=== PATIENT | female | born 1965 | race Caucasian/White ===

== ENCOUNTER 2017-09-01 17:49 | Emergency (ER) | payer BC ==
--- NOTE | 2017-09-01 19:07 | EDM.PDOC ---
ED HPI GENERAL MEDICAL PROBLEM - General Chief Complaint: ENT Problem Stated Complaint: FEVER/BODY ACHES/SORE THROAT Time Seen by Provider: 09/01/17 18:06 Source of Information: Reports: Patient History Limitations: Reports: No Limitations - History of Present Illness INITIAL COMMENTS - FREE TEXT/NARRATIVE: This lady comes in complaining of a sore throat also some problems with a 2 and a little bit of aching in her flanks. She has had a sore throat for about a week but this morning she started having body aches and a little bit of fever. She said everybody at home is sick too. The tooth previously that had a It Fell off and Now Is Due To Be Extracted Soon. - Related Data Allergies Allergy/AdvReac Type Severity Reaction Status Date / Time No Known Allergies Allergy Verified 09/01/17 17:58 Home Meds: Home Meds Amphetamine/Dextroamphetamine [Adderall XR] 09/01/17 [History] Hydrochlorothiazide [Hydrochlorothiazide] 09/01/17 [History] Past Medical History - Past Surgical History Female Surgical History: Reports: Section, Hysterectomy Social & Family History - Tobacco Use Smoking Status *Q: Never Smoker ED ROS ENT - Review of Systems Review Of Systems: ROS reveals no pertinent complaints other than HPI. ED EXAM, ENT - Physical Exam Exam: See Below Exam Limited By: No Limitations General Appearance: Alert, WD/WN Mouth/Throat: Other (One of the lower posterior molars is fractured off. I didn' t see her tonsils well but the nurse said they were a little bit swollen and had some exudate on them.) Neck: Normal Inspection, Full Range of Motion Respiratory/Chest: Lungs Clear Cardiovascular: Regular Rate, Rhythm Course - Vital Signs Last Recorded V/S: Last Vital Signs Temp 37.3 C 09/01/17 18:12 Pulse 99 09/01/17 18:12 Resp 14 09/01/17 18:12 BP 145/70 H 09/01/17 18:12 Pulse Ox 96 09/01/17 18:12 - Orders/Labs/Meds Labs: Laboratory Tests 09/01/17 Range/Units 18:16 Urine Color Yellow Urine Appearance Clear Urine pH 7.0 (4.5-8.0) Ur Specific [place] 1.015 (1.008-1.030) Urine Protein Negative (NEGATIVE) mg/dL Urine Glucose (UA) Normal (NEGATIVE) mg/dL Urine Ketones 50 H (NEGATIVE) mg/dL Urine Occult Blood Moderate (NEGATIVE) Urine Nitrite Negative (NEGATIVE) Urine Bilirubin Negative (NEGATIVE) Urine Urobilinogen Normal (NORMAL) mg/dL Ur Leukocyte Esterase Negative (NEGATIVE) Urine RBC 10-20 H (0-5) Urine WBC 0-5 (0-5) Ur Epithelial Cells Moderate Amorphous Sediment Not seen Urine Bacteria Few Urine Mucus Moderate - Re-Assessments/Exams Free Text/Narrative Re-Assessment/Exam: 09/01/17 19:05 Strep test is positive. Her tooth is fractured off at the wood looks like it's very chronic there is no abscess associated with it. She didn't get a flu shot this year but I don't have much suspicion of influenza. There was a little bit of blood in the urine. This patient is post hysterectomy. I told her that she will need to have a repeat urinalysis and one or 2 weeks. She's aware of the importance of following up the hematuria. I don' t have any suspicion of a stone. 09/01/17 19:06 Departure - Departure Time of Disposition: 19:06 Disposition: Home, Self-Care 01 Condition: Fair Clinical Impression: Strep pharyngitis, Microhematuria - Discharge Information Referrals: Payton Contreras PA [Primary Care Provider] - Additional Instructions: Take the penicillin VK 500 mg 4 times per day for 10 days. Strep is really sensitive to this medication. Use Tylenol and/or ibuprofen for fever and body aches. See your doctor in 1 or 2 weeks and have the urine rechecked. Persistent blood in the urine could indicate more serious problem with the kidneys.
== END 2017-09-01 19:28 | disposition home or self-care (01) ==
LOC: JP.ED 17:49
DX: J02.0 Streptococcal pharyngitis (principal); R31.29 Other microscopic hematuria; Z90.710 Acquired absence of both cervix and uterus
CPT/HCPCS: 81001; 87430; 99284

== ENCOUNTER 2017-09-11 01:50 | Emergency (ER) | payer BC ==
[2017-09-11] MEDS ORDERED: Lidocaine/EPINEPHrine/Tetracaine Soln 5 ML Each TOP ONE (02:28)
[2017-09-11] MEDS ORDERED: Ondansetron 4 MG Tab.DIS PO ONE (02:40)
--- NOTE | 2017-09-11 02:40 | EDM.PDOC ---
ED HPI GENERAL MEDICAL PROBLEM - General Chief Complaint: General Stated Complaint: TOOTHACHE/BLEEDING Time Seen by Provider: 09/11/17 02:12 Source of Information: Reports: Patient, RN Notes Reviewed History Limitations: Reports: No Limitations - History of Present Illness INITIAL COMMENTS - FREE TEXT/NARRATIVE: 51-year-old female presents emergency department today with complaint of bleeding gums, she had a dental extraction today has been unable to control the bleeding has tried teabags and multiple gauze placements with pressure - Related Data Allergies Allergy/AdvReac Type Severity Reaction Status Date / Time No Known Allergies Allergy Verified 09/11/17 02:10 Home Meds: Home Meds Amphetamine/Dextroamphetamine [Adderall XR] 30 mg PO DAILY 09/01/17 [History] Hydrochlorothiazide [Hydrochlorothiazide] 12.5 mg PO DAILY 09/01/17 [History] Penicillin V Potassium [Veetids] 500 mg PO QID 09/11/17 [History] Past Medical History HEENT History: Reports: Other (See Below) Other HEENT History: tooth extraction - Infectious Disease History Infectious Disease History: Reports: Chicken Pox - Past Surgical History Female Surgical History: Reports: Section, Hysterectomy Social & Family History - Tobacco Use Smoking Status *Q: Unknown Ever Smoked - Caffeine Use Caffeine Use: Reports: Coffee - Recreational Drug Use Recreational Drug Use: No ED ROS GENERAL - Review of Systems Review Of Systems: See Below Constitutional: Reports: No Symptoms HEENT: Reports: Other (Bleeding gums) GI/Abdominal: Reports: Nausea ED EXAM, GENERAL - Physical Exam Exam: See Below Free Text/Narrative:: Mouth mucosa is moist and pain she does active bleeding and large clots tooth # 17, after clot was sucked out a Surgicel gauze pad soaked with left was placed over the area with teabag to hold it in place Exam Limited By: No Limitations General Appearance: Alert, Mild Distress Respiratory/Chest: No Respiratory Distress Course - Vital Signs Last Recorded V/S: Last Vital Signs Temp 97.4 F 09/11/17 02:07 Pulse 81 09/11/17 02:07 Resp 16 09/11/17 02:07 BP 143/73 H 09/11/17 02:07 Pulse Ox 94 L 09/11/17 02:07 - Orders/Labs/Meds Labs: Laboratory Tests 03/13/18 Range/Units 02:44 WBC 11.2 H (4.5-11.0) K/uL RBC 3.81 (3.30-5.50) M/uL Hgb 11.4 L (12.0-15.0) g/dL Hct 33.4 L (36.0-48.0) % MCV 88 (80-98) fL MCH 30 (27-31) pg MCHC 34 (32-36) % Plt Count 358 (150-400) K/uL Neut % (Auto) 70 H (36-66) % Lymph % (Auto) 21 L (24-44) % [place] % (Auto) 8 H (2-6) % Eos % (Auto) 1 L (2-4) % Baso % (Auto) 0 (0-1) % Meds: Medications Discontinued Medications Generic Name Dose Route Start Last Admin Trade Name Freq PRN Reason Stop Dose Admin Lidocaine/Tetracaine 5 ml 09/11/17 02:28 09/11/17 02:32 Let Soln TOP 09/11/17 02:29 5 ml ONETIME ONE Administration Ondansetron HCl 4 mg 09/11/17 02:40 09/11/17 02:43 Zofran Odt PO 09/11/17 02:41 4 mg ONETIME ONE Administration Departure - Departure Time of Disposition: 03:40 Disposition: Home, Self-Care 01 Condition: Good Clinical Impression: Gums, bleeding - Discharge Information Referrals: Payton Contreras PA [Primary Care Provider] - Forms: ED Department Discharge Additional Instructions: Continue to use the teabags and the Surgicel provided, follow-up with your dentistry in the morning - Assessment/Plan Plan: Assessment Acuity = acute Site and laterality = bleeding dental extraction site Etiology = recent dental procedure Manifestations = none Location of injury = Home Lab values = hemoglobin 11.4 consistent normochromic anemia Plan We will get the bleeding under control combination of left soaked onto a Surgicel gauze pad with a tea bag used to hold it in place however contact her dentist in the morning This note was dictated using [employer] voice recognition software please call with any questions on syntax or alexa.
== END 2017-09-11 03:30 | disposition home or self-care (01) ==
LOC: JP.ED 01:50
DX: K06.9 Disorder of gingiva and edentulous alveolar ridge, unspecified (principal); Z79.899 Other long term (current) drug therapy
CPT/HCPCS: 36415; 85025; 99283; A9270-GY

== ENCOUNTER 2017-12-07 06:58 | Day surgery (SDC) | payer BC ==
[2017-12-07] MEDS ORDERED: Sodium Chloride 0.9% 1,000 ML IV SCH (07:30)
[2017-12-07] MEDS ORDERED: fentaNYL 100 MCG/2 ML SDV ONE (07:40)
[2017-12-07] MEDS ORDERED: Propofol 200 MG/20 ML SDV ONE ×2 (07:41→09:22)
[2017-12-07] MEDS ORDERED: Midazolam 1 MG/ML 2 ML SDV ONE (07:41)
--- NOTE | 2017-12-07 14:15 | OR ---
DATE OF PROCEDURE: 12/07/2017 PROCEDURE: Colonoscopy. FINDINGS: 1. Diverticulosis, moderate to severe, throughout the entire colon. 2. Marginal colon prep. 3. Sigmoid colon polyp, completely removed using cold biopsy forceps. COMPLICATIONS: None. ENTRY DRIVER OPERATOR: None. ANESTHESIA: MAC. PREOPERATIVE DIAGNOSIS: Screening colonoscopy. POSTOPERATIVE DIAGNOSIS: Screening colonoscopy. RISKS: Risks, benefits, alternatives, and limitations including, but not limited to infection, bleeding, and perforation were explained to the patient, who wished to proceed. PROCEDURE IN DETAIL: The patient was placed in left lateral decubitus position. Digital rectal exam was performed without abnormality. The scope was introduced and advanced atraumatically to the ileocecal valve. The scope was brought back to the ascending, transverse, descending colon, and retroflexed. Prep was moderately acceptable. There was a large amount of solid and liquid stool remaining. There was a sigmoid colon polyp, approximately 5 mm, completely removed using cold biopsy forceps. No abnormalities and retroflexed. The patient tolerated the procedure well. Rony Krause MD /[id number]
== END 2017-12-07 11:00 | disposition home or self-care (01) ==
LOC: JP.SDS 06:58
PROVIDERS: ATTEND Surgery
DX: Z12.11 Encounter for screening for malignant neoplasm of colon (principal); K63.5 Polyp of colon; K57.30 Diverticulosis of large intestine without perforation or abscess without bleeding; K27.9 Peptic ulcer, site unspecified, unspecified as acute or chronic, without hemorrhage or perforation; I10 Essential (primary) hypertension; E66.9 Obesity, unspecified; F98.8 Other specified behavioral and emotional disorders with onset usually occurring in childhood and adolescence; Z86.010 Personal history of colon polyps
CPT/HCPCS: 45380; J2250; J2704; J3010; J7030; 88305

== ENCOUNTER 2020-10-07 06:40 | Day surgery (SDC) | payer BC ==
[2020-10-07] MEDS ORDERED: Dextrose 5%-Lactated Ringers 1,000 ML IV SCH (07:00)
[2020-10-07] MEDS ORDERED: Propofol 200 MG/20 ML SDV ONE (07:09)
[2020-10-07] MEDS ORDERED: Midazolam 1 MG/ML 2 ML SDV ONE (07:09)
[2020-10-07] MEDS ORDERED: fentaNYL 100 MCG/2 ML SDV ONE (07:09)
--- NOTE | 2020-10-11 17:57 | OR ---
DATE OF PROCEDURE: 10/07/2020 SURGEON: Deni Lopez MD PREOPERATIVE DIAGNOSIS: History of colon polyps. POSTOPERATIVE DIAGNOSES: 1. No recurrent colon polyps. 2. Left colonic diverticulosis. OPERATIVE PROCEDURE: Flexible colonoscopy. ANESTHESIA: IV sedation. INDICATION FOR PROCEDURE: This is a 54-year-old female with history of colon polyps presenting for a followup colonoscopy. Plan is to proceed with colonoscopy with biopsies and/or polypectomy as indicated. Potential risks including bleeding and perforation were discussed, and the patient wishes to proceed. DETAILS OF PROCEDURE: The patient was taken to the operating room and placed in a left lateral decubitus position. IV sedation was administered, after which the initial digital rectal exam was performed. It was unremarkable. The scope was then passed into the rectum with retroflexion revealing uncomplicated hemorrhoidal columns. Scope was eventually passed to the level of the cecum. The prep was quite good with there only being a small amount of liquid stool present. No recurrent polyp formation or other signs of neoplasia was seen. She did have some uncomplicated left colonic diverticulosis. No areas of colitis were seen. 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 The scope was then withdrawn. The above findings reconfirmed and the procedure then concluded. Recommendation would be to repeat the colonoscopy in 5 years given the personal history of the colon polyps. Deni Lopez MD /[id number]
== END 2020-10-07 09:59 | disposition home or self-care (01) ==
LOC: JP.SDS 06:40
PROVIDERS: ATTEND Surgery
DX: Z12.11 Encounter for screening for malignant neoplasm of colon (principal); K57.30 Diverticulosis of large intestine without perforation or abscess without bleeding; D17.5 Benign lipomatous neoplasm of intra-abdominal organs; K64.9 Unspecified hemorrhoids; Z86.010 Personal history of colon polyps
CPT/HCPCS: 45378; J2250; J2704; J3010; J7121

== ENCOUNTER 2021-11-08 05:30 | Day surgery (SDC) | payer BC ==
[2021-11-08] MEDS ORDERED: Acetaminophen 500 MG Tab PO ONE (06:30)
[2021-11-08] MEDS ORDERED: Lidocaine 1% with EPINEPHrine 1:100,000 50 ML MDV ONE (06:40)
[2021-11-08] MEDS ORDERED: Bupivacaine 0.5% 50 ML MDV ONE (06:40)
[2021-11-08] MEDS ORDERED: fentaNYL 250 MCG/5 ML SDV ONE (06:58)
[2021-11-08] MEDS ORDERED: Propofol 200 MG/20 ML SDV ONE (06:59)
[2021-11-08] MEDS ORDERED: Glycopyrrolate 0.2 MG/ML 5 ML MDV ONE (06:59)
[2021-11-08] MEDS ORDERED: Ondansetron 4 MG/2 ML SDV ONE (06:59)
[2021-11-08] MEDS ORDERED: Dexamethasone 4 MG/ML SDV ONE (06:59)
[2021-11-08] MEDS ORDERED: Rocuronium 50 MG/5 ML Vial ONE (06:59)
[2021-11-08] MEDS ORDERED: Neostigmine Methylsulfate 1 MG/ML 5 ML Syringe ONE (06:59)
[2021-11-08] MEDS ORDERED: Dextrose 5%-Lactated Ringers 1,000 ML IV SCH (07:00)
[2021-11-08] MEDS ORDERED: cefOXitin 2 GM in Sodium Chloride 0.9% 50 ML IV ONE (07:15)
[2021-11-08] MEDS ORDERED: Labetalol 20 MG/4 ML Syringe ONE (07:39)
[2021-11-08] MEDS ORDERED: Ketamine 500 MG/5 ML MDV IV SCH (07:45)
[2021-11-08] MEDS ORDERED: Ketamine 18 MG in Sodium Chloride 0.9% 19.82 ML IV SCH (07:45)
[2021-11-08] MEDS ORDERED: fentaNYL 100 MCG/2 ML SDV ONE (07:49)
[2021-11-08] MEDS ORDERED: diphenhydrAMINE 50 MG/ML SDV IVPUSH ONE (08:43)
[2021-11-08] MEDS ORDERED: Ketorolac 30 MG/ML SDV IM ONE (09:00)
[2021-11-08] MEDS ORDERED: HYDROmorphone 2 MG Tab PO PRN (11:30)
[2021-11-08] MEDS ORDERED: Ondansetron 4 MG/2 ML SDV IVPUSH ONE (11:40)
== END 2021-11-08 12:53 | disposition home or self-care (01) ==
LOC: JP.SDS 05:30
PROVIDERS: ATTEND Surgery
DX: K80.10 Calculus of gallbladder with chronic cholecystitis without obstruction (principal); K76.0 Fatty (change of) liver, not elsewhere classified; K74.00 Hepatic fibrosis, unspecified; R16.0 Hepatomegaly, not elsewhere classified; I10 Essential (primary) hypertension; Z98.890 Other specified postprocedural states; Z79.899 Other long term (current) drug therapy; Z87.891 Personal history of nicotine dependence; Z88.8 Allergy status to other drugs, medicaments and biological substances
CPT/HCPCS: 88304; 88307; 88313; A9270-GY; J0171; J0694; J1100; J1885; J2405; J2704; J2710; J2795; J3010; J3490; J7121

== ENCOUNTER 2024-03-24 17:32 | Emergency (ER) | payer BC, OTHER ==
[2024-03-24 17:55] LABS: BASOPHILS ABSOLUTE AUTO 0.03 K/uL (0.00-0.10); BASOPHILS PERCENT AUTO 0.5 % (0.1-1.3); EOSINOPHILS PERCENT AUTO 0.3 % (0.0-5.4); HEMATOCRIT 38.6 % (34.3-46.0); HEMOGLOBIN 13.6 g/dL (11.2-15.5); IMMATURE GRAN PERCENT AUTO 0.3 % (0.0-0.7); LYMPHOCYTES ABSOLUTE AUTO 1.62 K/uL (0.8-3.3); LYMPHOCYTES PERCENT AUTO 24.5 % (11.4-47.7); MEAN CORPUSCULAR HEMOGLOBIN 29.9 pg (31.6-35.5); MEAN CORPUSCULAR HGB CONC 35.2 g/dL (31.6-35.5); MEAN CORPUSCULAR VOLUME 84.8 fL (81.4-99.0); MONOCYTES ABSOLUTE AUTO 0.72 K/uL (0.20-0.90); MONOCYTES PERCENT AUTO 10.9 % (3.3-12.6); NEUTROPHILS ABSOLUTE AUTO 4.19 K/uL (1.0-7.6); NEUTROPHILS PERCENT AUTO 63.5 % (40.0-78.1); PLATELET COUNT,PLT 173 K/uL (130-375); RED BLOOD CELL COUNT 4.55 M/uL (3.77-5.24); WHITE BLOOD CELL COUNT,WBC 6.6 K/uL (3.2-11.0)
[2024-03-24 17:57] LABS: EOSINOPHILS ABSOLUTE AUTO 0.02 K/uL (0.00-0.40); IMMATURE GRAN ABSOLUTE AUTO 0.02 K/uL (0.00-0.23)
[2024-03-24] MEDS: Aspirin 81 MG Tab.Chew PO ONE (17:57)
[2024-03-24 18:11] LABS: INR 1.1; PROTHROMBIN TIME 11.6 sec (9.2-10.6)
[2024-03-24 18:18] LABS: A/G RATIO 1.1 (1.2-2.2); ALANINE AMINOTRANSFERASE,ALT 39 U/L (12-78); ALKALINE PHOSPHATASE 117 U/L (46-116); ASPARTATE AMNIOTRANSFERASE,AST 43 U/L (15-37); BILIRUBIN TOTAL 0.5 mg/dL (0.2-1.0); BLOOD UREA NITROGEN,BUN 8 mg/dL (7-18); CALCIUM 9.3 mg/dL (8.5-10.1); CARBON DIOXIDE,CO2 29 mmol/L (21-32); CHLORIDE,CL 103 mmol/L (100-108); CREATININE 0.8 mg/dL (0.6-1.0); ESTIMATED GFR 86 mL/min (>60); GLUCOSE RANDOM 94 mg/dL (74-106); POTASSIUM,K 3.5 mmol/L (3.6-5.2); PROTEIN TOTAL,TP 7.7 g/dL (6.4-8.2); SODIUM,NA 141 mmol/L (140-148)
[2024-03-24 18:20] LABS: ANION GAP 12.5 mmol/L (5.0-14.0)
[2024-03-24] MEDS: Alum Hydrox/Mag Hydrox/Simeth 15 ML, Lidocaine 2% 15 ML PO ONE (18:48)
[2024-03-24] MEDS: hydrALAZINE 20 MG/ML SDV IVPUSH ONE (19:58)
[2024-03-24] MEDS: Ondansetron 4 MG/2 ML SDV IVPUSH ONE (20:20)
== END 2024-03-24 20:46 | disposition home or self-care (01) ==
LOC: JP.ED 17:32
DX: I10 Essential (primary) hypertension (principal); E66.9 Obesity, unspecified; Z68.33 Body mass index [BMI] 33.0-33.9, adult; Z90.49 Acquired absence of other specified parts of digestive tract; Z90.710 Acquired absence of both cervix and uterus; Z87.891 Personal history of nicotine dependence; Z79.899 Other long term (current) drug therapy; Z88.8 Allergy status to other drugs, medicaments and biological substances
CPT/HCPCS: 36415; 71045; 80053; 84484; 85025; 85379; 85610; 93005; 96374; 96375; 99285; A9270; J0360; J2405

== ENCOUNTER 2024-06-06 06:44 | Day surgery (SDC) | payer OTHER ==
[2024-06-06] MEDS ORDERED: Midazolam 1 MG/ML 2 ML SDV ONE (07:03)
[2024-06-06] MEDS ORDERED: Propofol 200 MG/20 ML SDV ONE ×2 (07:03→08:07)
[2024-06-06] MEDS ORDERED: fentaNYL 50 MCG/ML SDV ONE (07:03)
[2024-06-06] MEDS: Lactated Ringers 1,000 ML IV SCH (07:50)
== END 2024-06-06 09:35 | disposition home or self-care (01) ==
LOC: JP.SDS 06:44
PROVIDERS: ATTEND Family Medicine
DX: Z12.11 Encounter for screening for malignant neoplasm of colon (principal); D12.3 Benign neoplasm of transverse colon; K57.30 Diverticulosis of large intestine without perforation or abscess without bleeding; I10 Essential (primary) hypertension; E66.9 Obesity, unspecified; Z88.8 Allergy status to other drugs, medicaments and biological substances; Z86.0101 Personal history of adenomatous and serrated colon polyps
CPT/HCPCS: 00811; 45380; 88305; J2250; J2704; J3010; J7120